=== PATIENT | male | born 1940 | race Caucasian/White ===

== ENCOUNTER 2016-10-18 15:22 | Emergency (ER) | payer MEDICARE, OTHER ==
[~2016-10-18 15:22] MED LIST: CELEXA10 MG PO; CELEXA20 MG; CITALOPRAM HBR10 MG PO; LISINOPRIL-HC PO; METFORMIN; NORCO 5/325 TAB1 TAB PO; PRAVACHOL40 MG; TYLENOL PM EX-S1 TAB; ZESTRIL40 M1 PO
[2016-10-18] MEDS ORDERED: PRAVASTATIN SOD80 M1 PO (15:35)
[2016-10-18] MEDS ORDERED: ZYLOPRIM100 M1 PO (15:35)
[2016-10-18] MEDS ORDERED: GLUCOPHAGE850 M1 PO (15:35)
== END 2016-10-18 16:20 ==
LOC: EDMED 15:22
DX: R13.10 Dysphagia, unspecified (principal); I10 Essential (primary) hypertension; E11.9 Type 2 diabetes mellitus without complications; E78.5 Hyperlipidemia, unspecified; Z88.5 Allergy status to narcotic agent